=== PATIENT | female | born 1995 | race Caucasian/White ===

== ENCOUNTER 2021-10-13 08:26 | Outpatient (CLI) | payer OTHER, SELFPAY | END 2021-10-13 08:27 | disposition home or self-care (01) | LOC: FRMREF 10-16 16:17 | PROVIDERS: PCP Physician Assistant Medical; Visit Provider Physician Assistant Medical | DX: R30.0 Dysuria (principal); N39.0 Urinary tract infection, site not specified | CPT/HCPCS: 87086 ==